=== PATIENT | female | born 1965 | race Caucasian/White ===

== ENCOUNTER → 2016-12-04 | Outpatient (CLI) | payer OTHER ==
--- NOTE | 2016-12-04 09:23 | MM ---
Reason for exam: follow-up at short interval from prior study. Last mammogram was performed 5 months ago. History: Patient has history of breast cancer at age 51 and has history of high-risk lesion on a previous biopsy at age 51. High risk US biopsy breast VAD RT of the right breast, July 16, 2016. Malignant MG pre op needle loc LT of the left breast, June 18, 2016. Lumpectomy of the left breast, June 18, 2016. Physical Findings: Nurse did not find any significant physical abnormalities on exam. MG Diagnostic Mammo w CAD DELONTE Bilateral CC and MLO view(s) were taken. Prior study comparison: July 16, 2016, right breast MG diagnostic mammo RT wo CAD. July 12, 2016, right breast MG diagnostic mammo RT w CAD. The breast tissue is heterogeneously dense. This may lower the sensitivity of mammography. Post surgical and post therapy changes in the left breast. Additional post excision changes in the right breast. Findings can be reassessed in 6 months to assess for evolving changes. These results were verbally communicated with the patient and result sheet given to the patient on 12/04/16. ASSESSMENT: Probably benign, BI-RAD 3 RECOMMENDATION: Follow-up diagnostic mammogram of both breasts in 6 months.
== END | disposition home or self-care (01) ==
LOC: RADMAMWWP 07:01
PROVIDERS: ATTEND Family Medicine
DX: C50.412 Malignant neoplasm of upper-outer quadrant of left female breast (principal); C77.3 Secondary and unspecified malignant neoplasm of axilla and upper limb lymph nodes

== ENCOUNTER → 2017-07-08 | Outpatient (CLI) | payer OTHER ==
--- NOTE | 2017-07-09 07:12 | MM ---
Reason for exam: additional evaluation requested from prior study. Last mammogram was performed 7 months ago. History: Patient is postmenopausal, has history of breast cancer at age 51, and has history of high-risk lesion on a previous biopsy at age 51. High risk US biopsy breast VAD RT of the right breast, July 16, 2016. Malignant MG pre op needle loc LT of the left breast, June 18, 2016. Lumpectomy of the left breast, June 18, 2016. Took hormonal contraceptives beginning at age 21. Took antineoplastic beginning at age 51. Physical Findings: Nurse did not find any significant physical abnormalities on exam. MG Diagnostic Mammo w CAD DELONTE Bilateral CC and MLO view(s) were taken. Prior study comparison: December 04, 2016, bilateral MG diagnostic mammo w CAD DELONTE. The breast tissue is heterogeneously dense. This may lower the sensitivity of mammography. Finding: Architectural distortion in the posterior position of the left breast, consistent with known excision. There is no new dominant lesion. There is distortion in the right breast central anterior middle aspect consistent with high risk biopsy. Left breast is asymmetrically smaller with thickened skin. These results were verbally communicated with the patient and result sheet given to the patient on 07/08/17. ASSESSMENT: Probably benign, BI-RAD 3 RECOMMENDATION: Follow-up diagnostic mammogram of both breasts in 6 months. (Cancer less than 2 years).
== END | disposition home or self-care (01) ==
LOC: RADMAMWWP 14:53
PROVIDERS: ATTEND Radiology Radiation Oncology
DX: C50.412 Malignant neoplasm of upper-outer quadrant of left female breast (principal); C77.3 Secondary and unspecified malignant neoplasm of axilla and upper limb lymph nodes

== ENCOUNTER → 2018-01-06 | Outpatient (CLI) | payer OTHER ==
--- NOTE | 2018-01-14 13:16 | MM ---
Reason for exam: additional evaluation requested from prior study. Last mammogram was performed 6 months ago. History: Patient is postmenopausal, has history of breast cancer at age 51, and has history of high-risk lesion on a previous biopsy at age 51. High risk US biopsy breast VAD RT of the right breast, July 16, 2016. Malignant MG pre op needle loc LT of the left breast, June 18, 2016. Lumpectomy of the left breast, June 18, 2016. Chemotherapy, 2015. Radiation therapy of the left breast, 2016. Took hormonal contraceptives beginning at age 21. Taking antineoplastic beginning at age 51. Physical Findings: Nurse Summary: 1.5cm questionable nodule in the left breast at 12 o'clock (nurse mj). MG Diagnostic Mammo w CAD DELONTE Bilateral CC and MLO view(s) were taken. Spot compression CC view(s) were taken of the right breast. Prior study comparison: July 08, 2017, bilateral MG diagnostic mammo w CAD DELONTE. December 04, 2016, bilateral MG diagnostic mammo w CAD DELONTE. The breast tissue is heterogeneously dense. This may lower the sensitivity of mammography. Right medial asymmetry resolves on spot compression view. No suspicious abnormality. Left post therapy change. Right post operative change. These results were verbally communicated with the patient and result sheet given to the patient on 01/06/18. ASSESSMENT: Benign, BI-RAD 2 RECOMMENDATION: Follow-up diagnostic mammogram of both breasts in 1 year.
== END | disposition home or self-care (01) ==
LOC: RADMAMWWP 13:26
PROVIDERS: ATTEND Internal Medicine Hematology & Oncology
DX: Z08 Encounter for follow-up examination after completed treatment for malignant neoplasm (principal); Z85.3 Personal history of malignant neoplasm of breast
CPT/HCPCS: 77066

== ENCOUNTER → 2018-01-22 | Outpatient (CLI) | payer OTHER ==
--- NOTE | 2018-01-22 13:56 | USB ---
Reason for exam: clinical finding. History: Patient is postmenopausal, has history of breast cancer at age 51, and has history of high-risk lesion on a previous biopsy at age 51. High risk US biopsy breast VAD RT of the right breast, July 16, 2016. Malignant MG pre op needle loc LT of the left breast, June 18, 2016. Lumpectomy of the left breast, June 18, 2016. Chemotherapy, 2016. Radiation therapy of the left breast, 2016. Took hormonal contraceptives beginning at age 21. Taking antineoplastic beginning at age 51. Physical Findings: Breast exam performed on 01/06/18. US Breast LT Left complete breast ultrasound includes all four quadrants, the retroareolar region and axilla. Finding demonstrates post surgical change at lumpectomy site. No additional solid or cystic masses. No suspicious abnormality. These results were verbally communicated with the patient and result sheet given to the patient on 01/22/18. ASSESSMENT: Benign, BI-RAD 2 RECOMMENDATION: Follow-up diagnostic mammogram of both breasts in 1 year.
== END | disposition home or self-care (01) ==
LOC: RADUSWWP 09:50
PROVIDERS: ATTEND Internal Medicine Hematology & Oncology
DX: N63.20 Unspecified lump in the left breast, unspecified quadrant (principal); Z85.3 Personal history of malignant neoplasm of breast

== ENCOUNTER → 2018-01-22 | Outpatient (CLI) | payer OTHER ==
[2018-01-22 09:16] VITALS: BP 135/87; PULSE 99; BMI 38.0
--- NOTE | 2018-01-22 09:46 | P.GSHP ---
History of Present Illness H&P Date: 01/22/18 Chief Complaint: history of breast cancer The patient is a 52-year-old white female status post a left breast lumpectomy for a stage IIb breast cancer in 2016. She underwent preoperative chemotherapy followed by lumpectomy with axillary nodes removed cancer was present in one node and she then underwent radiation therapy. The radiation included the axilla. The patient had a bilateral mammogram 01-06-18 which was felt to be benign however the patient and Dr. Khan as well as examining nurse feel a area of increased density in the left breast near the lumpectomy site for which an ultrasound is being done later today. The patient also feels this area. No nipple discharge or pain the patient denies any nipple discharge of concern. The patient denies any pain in her breast. She has no complaints of any changes in her right breast. She is taking tamoxifen for a computer stuff done without adenopathy in the purulence that he prefers. Family history: Father prostate cancer Brother: Prostate cancer Sister: Lung cancer Patient: Breast cancer Social history: Smoking: Negative Alcohol: Wine coolers twice a week Drugs: Negative Review of systems: HEENT: Concern that no gross glasses for seeing Lungs: Negative Heart: Negative GI: Negative : Negative Skin: No cancers Musculoskeletal:arthritis Menarche: 13 mneopause: within last 2 years, brought on by the treatment pregnancys: 4 with 3 births Patient did not breast-feed First live at 21 - Constitutional Constitutional: Reports as per HPI - EENT Eyes: bilateral as per HPI Ears: deny: decreased hearing, ear discharge, earache, tinnitus Ears, nose, mouth and throat: Denies headache, Denies sore throat - Breasts Breasts: bilateral: as per HPI - Cardiovascular Cardiovascular: Denies chest pain, Denies shortness of breath - Respiratory Respiratory: Denies cough, Denies 7 - Gastrointestinal Gastrointestinal: Denies abdominal pain, Denies diarrhea, Denies nausea, Denies vomiting - Genitourinary (Female) Genitourinary: Denies dysuria, Denies hematuria - Menstruation Menstruation: Reports as per HPI - Musculoskeletal Comment: Arthritis - Integumentary Integumentary: Reports as per HPI - Neurological Comment: 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 History of Any Multi-Drug Resistant Organisms: None Reported Past Surgical History: Breast Surgery, Section Additional Past Surgical History / Comment(s): x 2, L breast bx., port a cath insertion. 06-18-16 LT BREST LUMPECTOMY/SENTINEL NODE BX-NELLY CATH REMOVED. Past Anesthesia/Blood Transfusion Reactions: No Reported Reaction Past Psychological History: No Psychological Hx Reported Smoking Status: Never smoker Past Alcohol Use History: Occasional Past Drug Use History: None Reported - Past Family History Brother(s) Family Medical History: Cancer Additional Family Medical History / Comment(s): PROSTATE DIAGNOSED AT AGE 52 STILL LIVING Father Family Medical History: Cancer Additional Family Medical History / Comment(s): PROSTATE AT THE AGE OF 85 Sister(s) Family Medical History: Cancer Additional Family Medical History / Comment(s): DIAGNOSED WITH LUNG CANCER IN 2017 AT THE AGE OF 56. Medications and Allergies Home Medications Medication Instructions Recorded Confirmed Type RX: Levothyroxine Sodium 250 mcg PO DAILY 12/20/15 06/18/16 History [Unithroid] RX: Tamoxifen [Nolvadex] 20 gm PO TID-W/MEALS 01/22/18 01/22/18 History Allergies Allergy/AdvReac Type Severity Reaction Status Date / Time No Known Allergies Allergy Verified 06/14/16 15:56 Surgical - Exam Vital Signs Pulse BP 99 135/87 01/22/18 09:10 01/22/18 09:10 - General obese - Eyes normal ocular movement - ENT normal pinna, normal nares, normal mucosa, no hearing loss - Neck no masses, trachea midline - Respiratory normal respiratory effort, clear to auscultation - Cardiovascular Rhythm: regular Heart Sounds: normal: S1, S2 - Abdomen Abdomen: soft, non tender, no guarding, no rigid, no rebound - Integumentary Bilateral lower extremity edema Upper extremities measured for lymphedema: Left forearm half a centimeter or larger than right forearm 10.5 cm Upper arms same size 16 cm - Neurologic no disoriented, no combative - Musculoskeletal normal gait, normal posture - Psychiatric oriented to time, oriented to person, oriented to place, speech is normal, memory intact Breast examination: Right breast: Multiple positional exam no dominant masses or nodules of concern Well-healed scar from prior biopsy No axillary adenopathy on the right of concern Left breast examination: Multiple positional exam changes from radiation and prior lumpectomy noted nothing of concern Left axilla no adenopathy of concern Assessment and Plan Assessment: Impression/plan: 1. History of left breast cancer status post lumpectomy and radiation therapy as well as chemotherapy and presently on tamoxifen 2. Swelling in bilateral lower extremities left greater than right 3. Arms were measured for lymphedema the left forearm is slightly larger than the right forearm although the arms themselves are the same size Plan: 1. Patient for ultrasound of the left breast today depending on results will see patient again in 6 months time 2. Referral for lymphedema specialist 3. Medical management of lower extremity edema Cc: Dr. Cornelius, also sent As a nurse practitioner Christel Henderson
== END | disposition home or self-care (01) ==
LOC: WWCWWP 09:07
PROVIDERS: ATTEND Surgery
DX: Z53.9 Procedure and treatment not carried out, unspecified reason (principal)

== ENCOUNTER → 2019-01-08 | Outpatient (CLI) | payer BC ==
--- NOTE | 2019-01-08 14:00 | MM ---
Reason for exam: additional evaluation requested from prior study. Last mammogram was performed 1 year ago. History: Patient is postmenopausal, has history of breast cancer at age 51, and has history of high-risk lesion on a previous biopsy at age 51. High risk US biopsy breast VAD RT of the right breast, July 16, 2016. Malignant MG pre op needle loc LT of the left breast, June 18, 2016. Lumpectomy of the left breast, June 18, 2016. Chemotherapy, 2015. Radiation therapy of the left breast, 2016. Took hormonal contraceptives beginning at age 21. Taking antineoplastic beginning at age 51. Physical Findings: Nurse did not find any significant physical abnormalities on exam. MG Diagnostic Mammo w CAD DELONTE Bilateral CC and MLO view(s) were taken. XCCL view(s) were taken of the right breast. Prior study comparison: January 06, 2018, bilateral MG diagnostic mammo w CAD DELONTE. July 08, 2017, bilateral MG diagnostic mammo w CAD DELONTE. No significant new findings when compared with previous films. These results were verbally communicated with the patient and result sheet given to the patient on 01/08/19. ASSESSMENT: Benign, BI-RAD 2 RECOMMENDATION: Follow-up diagnostic mammogram of both breasts in 1 year.
== END | disposition home or self-care (01) ==
LOC: RADMAMWWP 13:04
PROVIDERS: ATTEND Internal Medicine Hematology & Oncology
DX: Z08 Encounter for follow-up examination after completed treatment for malignant neoplasm (principal); Z85.3 Personal history of malignant neoplasm of breast
CPT/HCPCS: 77066

== ENCOUNTER → 2019-07-29 | Outpatient (CLI) | payer BC ==
[2019-07-29 17:12] LABS: Basophils % (A) 0 %; Eosinophils # (A) 0.2 k/uL (0-0.7); Eosinophils % (A) 2 %; HCT 36.7 % (34.0-46.0); Lymphocytes # (A) 1.4 k/uL (1.0-4.8); Lymphocytes % (A) 22 %; MCH 29.7 pg (25.0-35.0); MCHC 32.7 g/dL (31.0-37.0); Mean Platelet Volume 7.7; Monocytes # (A) 0.4 k/uL (0-1.0); Monocytes % (A) 6 %; Neutrophils # (A) 4.3 k/uL (1.3-7.7); Neutrophils % (A) 66 %; Platelet Count 219 k/uL (150-450); RBC 4.03 m/uL (3.80-5.40); RDW 12.6 % (11.5-15.5); WBC 6.5 k/uL (3.8-10.6)
== END | disposition home or self-care (01) ==
LOC: LABPAT 16:21
PROVIDERS: ATTEND Obstetrics & Gynecology
DX: Z01.812 Encounter for preprocedural laboratory examination (principal); N95.0 Postmenopausal bleeding; R93.89 Abnormal findings on diagnostic imaging of other specified body structures
CPT/HCPCS: 85025

== ENCOUNTER → 2019-08-13 | Day surgery (SDC) | payer BC ==
[2019-08-10 09:54] VITALS: BMI 38.0
[~2019-08-13] MED LIST: Acetaminophen-Codeine 300-30mg TAB PO PRN; DEXAMETHASONE SOD PHOSPHATE 10 MG/ML 1 ML VIAL IV ONE; HYDROmorphone 0.5 MG/0.5 ML SYRINGE IVP PRN; IBUPROFEN 600 MG TAB PO PRN; KETOROLAC 30 MG/ML 1 ML VIAL IVP PRN; KETOROLAC 30 MG/ML 1 ML VIAL ONE; LACTATED RINGERS 1,000 ML IV SCH; LIDOCAINE 1% INJ 10MG/ML (20 ML MDV) ONE; METOCLOPRAMIDE 5 MG/ML 2 ML VIAL IVP PRN; MIDAZOLAM 2 MG/2 ML VIAL IV PRN; MIDAZOLAM 2 MG/2 ML VIAL ONE; ONDANSETRON 4 MG/2 ML VIAL IVP ONE; ONDANSETRON 4 MG/2 ML VIAL IVP PRN; PROPOFOL 10 MG/ML 20 ML VIAL IV ONE; Pre Op ABX Message 1 EACH MISC MISCELLANE ONE; SCOPOLAMINE 1.5MG/72HR PATCH TRANSDERM ONE; SIMETHICONE 80 MG CHEWABLE PO PRN; diphenhydrAMINE 50 MG/ML 1 ML VIAL IVP PRN; fentaNYL (PF) 50 MCG/ML 2 ML AMP ONE
--- NOTE | 2019-08-13 10:53 | P.OP ---
Date of Procedure: 08/13/19 Preoperative Diagnosis: #1. Post menopausal bleeding #2. Thickened endometrial stripe on tamoxifen Postoperative Diagnosis: Same Procedure(s) Performed: #1. Diagnostic hysteroscopy #2. Dilation and curettage Anesthesia: other (Gen. by LMA) Surgeon: Wilmer Dunham Estimated Blood Loss (ml): 2 IV fluids (ml): 200 Urine output (ml): 50 Pathology: other (Endometrial curettings) Condition: stable Disposition: PACU Operative Findings: Intraoperatively, the uterus sounded to approximately 10 cm. Using the hysteroscope, the right tubal ostia was seen while the left was not as the cervix was dilated enough to not allow significant distention of the cavity. There appeared to be may have been a polyp attached at the fundus of the uterus or may have just represented some shaggy tissue as no polypoid tissue could be extracted during the D&C or with a polyp forceps. The typical gritty texture was felt throughout and there was minimal tissue returned. The patient is a poor candidate for vaginal instructed he should it be necessary. Description of Procedure: The patient was prepped and draped in usual fashion after general anesthesia was administered by the anesthesiologist. Weighted speculum was placed and the bladder was draining approximately 50 mL of clear brenden urine. The anterior lip of the cervix was grasped with single-tooth tenaculum and the uterus sounded to 10 cm as noted above. Dilators were utilized and an 18-Indian dilator could easily be placed without. The diagnostic hysteroscope was placed and the uterus findings as noted above. After adequate hysteroscopy had been carried out, the scope was set aside and a sharp curette laced to the fundus uterus. Serial and circumferential curettage was carried out onto a Telfa placed in the vagina with the typical gritty or Diana texture encountered throughout and minimal tissue returned. Polyp forceps was introduced and no tissue could be produced. One last pass was made with a sharp curette and the procedure was terminated. All instrumentation was removed. Is notable loss for the case was approximate 2 mL or less. There were no complications. All sponge, instrument, and needle counts were correct. The patient tolerated the procedure well and proceeded to the recovery room in stable condition.
[2019-08-13 11:05] VITALS: TEMP 97.5
[2019-08-13 11:13] VITALS: RESP 16
[2019-08-13 12:22] VITALS: BP 136/89; PULSE 92
== END | disposition home or self-care (01) ==
LOC: OR 08:44
PROVIDERS: ATTEND Obstetrics & Gynecology
DX: N84.1 Polyp of cervix uteri (principal); N95.0 Postmenopausal bleeding; E07.9 Disorder of thyroid, unspecified; Z85.3 Personal history of malignant neoplasm of breast; Z87.891 Personal history of nicotine dependence; Z92.3 Personal history of irradiation; Z92.21 Personal history of antineoplastic chemotherapy; Z79.899 Other long term (current) drug therapy; Z79.810 Long term (current) use of selective estrogen receptor modulators (SERMs)
CPT/HCPCS: 88305; 58558; J2250; J1100; J2405; J2001; J3010; J1885; J2704

== ENCOUNTER → 2020-02-23 | Outpatient (CLI) | payer BC ==
--- NOTE | 2020-02-24 08:39 | MM ---
Reason for exam: additional evaluation requested from prior study. Last mammogram was performed 1 year and 1 month ago. History: Patient is postmenopausal, has history of breast cancer at age 51, and has history of high-risk lesion on a previous biopsy at age 51. High risk US biopsy breast VAD RT of the right breast, July 16, 2016. Malignant MG pre op needle loc LT of the left breast, June 18, 2016. Lumpectomy of the left breast, June 18, 2016. Chemotherapy, 2015. Radiation therapy of the left breast, 2016. Took hormonal contraceptives beginning at age 21. Taking antineoplastic for 3 years beginning at age 51. Physical Findings: Nurse did not find any significant physical abnormalities on exam. MG Diagnostic Mammo w CAD DELONTE Bilateral CC and MLO view(s) were taken. Prior study comparison: January 08, 2019, bilateral MG diagnostic mammo w CAD DELONTE. January 06, 2018, bilateral MG diagnostic mammo w CAD DELONTE. The breast tissue is heterogeneously dense. This may lower the sensitivity of mammography. Stable post operative changes left breast. Clips in the right breast. No significant new findings when compared with previous films. These results were verbally communicated with the patient and result sheet given to the patient on 02/23/20. ASSESSMENT: Benign, BI-RAD 2 RECOMMENDATION: Follow-up diagnostic mammogram of both breasts in 1 year.
== END | disposition home or self-care (01) ==
LOC: RADMAMWWP 14:40
PROVIDERS: ATTEND Internal Medicine Hematology & Oncology
DX: C50.412 Malignant neoplasm of upper-outer quadrant of left female breast (principal); Z85.3 Personal history of malignant neoplasm of breast
CPT/HCPCS: 77066

== ENCOUNTER → 2021-03-12 | Outpatient (CLI) | payer BC ==
--- NOTE | 2021-03-13 07:49 | MM ---
Reason for exam: additional evaluation requested from prior study. Last mammogram was performed 1 year and 1 month ago. History: Patient is postmenopausal, has history of breast cancer at age 51, and has history of high-risk lesion on a previous biopsy at age 51. High risk US biopsy breast VAD RT of the right breast, July 16, 2016. Malignant MG pre op needle loc LT of the left breast, June 18, 2016. Lumpectomy of the left breast, June 18, 2016. Chemotherapy, 2015. Radiation therapy of the left breast, 2016. Took hormonal contraceptives beginning at age 21. Taking antineoplastic for 3 years beginning at age 51. Physical Findings: Nurse did not find any significant physical abnormalities on exam. MG Diagnostic Mammo w CAD DELONTE Bilateral CC and MLO view(s) were taken. XCCL view(s) were taken of the left breast. Prior study comparison: February 23, 2020, bilateral MG diagnostic mammo w CAD DELONTE. January 08, 2019, bilateral MG diagnostic mammo w CAD DELONTE. There are scattered fibroglandular densities. Post operative bilaterally and skin thickening on left. No change. These results were verbally communicated with the patient and result sheet given to the patient on 03/12/21. ASSESSMENT: Benign, BI-RAD 2 RECOMMENDATION: Follow-up diagnostic mammogram of both breasts in 1 year.
== END | disposition home or self-care (01) ==
LOC: RADMAMWWP 15:08
PROVIDERS: ATTEND Internal Medicine Hematology & Oncology
DX: N64.89 Other specified disorders of breast (principal); Z78.0 Asymptomatic menopausal state; Z85.3 Personal history of malignant neoplasm of breast
CPT/HCPCS: 77066

== ENCOUNTER → 2022-03-15 | Outpatient (CLI) | payer BC ==
--- NOTE | 2022-03-18 10:29 | MM ---
Reason for Exam: Screening (asymptomatic). Last screening mammogram was performed 12 month(s) ago. Patient History: Menarche at age 14. First Full-Term at age 21. Postmenopausal. Breast cancer, age 51. Hormonal Contraceptives, from age 21 until age 40. 06/18/2016, Lumpectomy on the Left side. 07/16/2016, High risk Core Biopsy on the right side. 06/18/2016, Malignant Core Biopsy on the left side. 2015, Chemotherapy. 2015, Radiation Therapy on the left side. Prior Study Comparison: 01/08/2019 Bilateral Diagnostic Mammogram, [facility]. 02/23/2020 Bilateral Diagnostic Mammogram, [facility]. 03/12/2021 Bilateral Diagnostic Mammogram, [facility]. Tissue Density: There are scattered fibroglandular densities. Findings: Analyzed By CAD. Postsurgical and posttreatment changes left breast with a posteriorly located bibasilar device. Some minimal benign dystrophic calcification has developed here in the interval. Postexcisional changes also present within the anterior aspect of the right breast. No significant change from prior exams. Overall Assessment: Benign, BI-RAD 2 Management: Screening Mammogram of both breasts in 1 year. 1. Patient should continue monthly self breast exams. 2. A clinical breast exam by your physician is recommended on an annual basis. 3. This exam should not preclude additional follow-up of suspicious palpable abnormalities. Electronically signed and approved by: Daniel Bustillos M.D. Radiologist
== END | disposition home or self-care (01) ==
LOC: RADMAMWWP 15:00
PROVIDERS: ATTEND Internal Medicine Hematology & Oncology
DX: Z12.31 Encounter for screening mammogram for malignant neoplasm of breast (principal); Z78.0 Asymptomatic menopausal state
CPT/HCPCS: 77067

== ENCOUNTER → 2022-05-22 | Outpatient (CLI) | payer BC ==
--- NOTE | 2022-05-23 17:47 | BD ---
EXAMINATION TYPE: Axial Bone Density DATE OF EXAM: 05/22/2022 COMPARISON: NONE CLINICAL HISTORY: 57 years year old Female. ICD-10 CODE: C50.412 BREAST CA Height: 67.5 Weight: 252.5 FRAX RISK QUESTIONS: Alcohol (3 or more units per day): NO Family History (Parent hip fracture): NO Glucocorticoids (More than 3mos): NO History of Fracture in Adulthood: WRIST Secondary Osteoporosis: 1. Type 1 Diabetes: NO 2. Hyperthyroidism: NO 3. Menopause before 45: NO 4. Malnutrition: NO 5. Chronic liver disease: NO Rheumatoid Arthritis: NO Current Tobacco Use: NO RISK FACTORS HISTORY OF: Hip Fracture (Right/Left): NO Spine Fracture: NO History of Wrist Fracture LT WRIST: When: AGE 40 Surgery to Spine/Hip(right/left)/Wrist (right/left): NO Family History of Osteoporosis: NO Active: NO Diet low in dairy products/other sources of calcium: NO Postmenopausal woman: YES Take estrogen and/or progesterone medications: YES How long: ESTROGEN DEL PAST 6 YEARS ANASTROZOLE Lost more than 2 inches in height since high school: NO Frequent falls: NO Poor Health: NO Hyperparathyroidism: NO Adrenal Insufficiency: NO MEDICATIONS: Prednisone or other steroids: NO Thyroid Medications: YES Which medication: SYNTHROID How Long: PAST 35 YEARS Osteoporosis Medications: NO Which medication: How Long: Additional Medications: VIT D, CALCIUM, , MAGNESIUM, ANASTROZOLE, SYNTHROID Additional History: BREAST CA. 2016 WITH CHEMO AND RADIATION EXAM MEASUREMENTS: Bone mineral densitometry was performed using the [employer] System. Bone mineral density as measured about the Lumbar spine is: ----- L1-L4(G/cm2): 1.296 T Score Values are as follows: ----- L1: 0.0 ----- L2: 0.7 ----- L3: 1.5 ----- L4: 1.3 ----- L1-L4: 1.0 BASELINE STUDY Bone mineral density about the R hip (g/cm2): 0.929 Bone mineral density about the L hip (g/cm2):0.875 T Score values are as follows: -----R Neck: -0.8 -----L Neck: -1.2 -----R Total: -1.0 -----L Total: -1.3 BASELINE STUDY FRAX%s: The graph provided illustrates a 5.7% chance for a major osteoporotic fx and a 0.3% chance fo r the hips probability for fx in 10 years time. IMPRESSION: Osteopenia (T Score between -2.5 and -1). There is slightly increased risk of fracture and the patient may be considered for treatment. Re-Screen 2-5 years. NOTE: T-SCORE=SD OF THE YOUNG ADULT MEAN.
== END | disposition home or self-care (01) ==
LOC: RADBDWWP 16:21
PROVIDERS: ATTEND Internal Medicine Hematology & Oncology
DX: C50.412 Malignant neoplasm of upper-outer quadrant of left female breast (principal)
CPT/HCPCS: 77080

== ENCOUNTER → 2024-06-07 | Outpatient (CLI) | payer BC ==
--- NOTE | 2024-06-08 08:02 | MM ---
Reason for Exam: Screening (asymptomatic). Last mammogram was performed 1 year(s) and 3 month(s) ago. Patient History: Menarche at age 14. First Full-Term at age 21. Postmenopausal. Breast cancer, left, age 51. Hormonal Contraceptives, from age 21 until age 40. 06/18/2016, Lumpectomy on the Left side. 07/16/2016, High risk Core Biopsy on the right side. 06/18/2016, Malignant Core Biopsy on the left side. 2015, Radiation Therapy on the left side. 2015, Chemotherapy. 2015, Radiation Therapy on the left side. Prior Study Comparison: 03/12/2021 Bilateral Diagnostic Mammogram, [facility]. 03/15/2022 Bilateral MG screening mammo w CAD, [facility]. 03/17/2023 Bilateral MG screening mammo w CAD, [facility]. Tissue Density: The breasts are heterogeneously dense, which may obscure small masses. Findings: Analyzed By CAD. There is no suspicious group of microcalcifications or new suspicious mass in either breast. Postbiopsy changes noted bilaterally. Area of asymmetric density in the upper outer left breast stable. Stable benign-appearing lymph nodes in the axilla. Overall Assessment: Benign, BI-RAD 2 Management: Screening Mammogram of both breasts in 1 year. . Patient should continue monthly self-breast exams. A clinical breast exam by your physician is recommended on an annual basis. This exam should not preclude additional follow-up of suspicious palpable abnormalities. Note on Barb scores and lifetime risk: 1. A Barb score greater than 3% is considered moderate risk. If this is the case, consider specialist referral to assess eligibility for a risk reducing agent. 2. If overall lifetime risk for the development of breast cancer is 20% or higher, the patient may qualify for future screening with alternating mammogram and breast MRI. [facility], , 06/08/2024 7:59 AM. Electronically signed and approved by: Wilfrid Starkey M.D. Radiologis
== END | disposition home or self-care (01) ==
LOC: RADMAMWWP 14:04
PROVIDERS: ATTEND Internal Medicine Hematology & Oncology
CPT/HCPCS: 77067

== ENCOUNTER → 2024-12-07 | Outpatient (CLI) | payer BC ==
--- NOTE | 2024-12-07 15:38 | BD ---
EXAMINATION TYPE: Axial Bone Density DATE OF EXAM: 12/07/2024 CLINICAL HISTORY: 59 years old Female. ICD-10 CODE: M81.0 OSTEOPENIA , Additional History: Height: 66.4 in Weight: 258 lbs FRAX RISK QUESTIONS: History of Fracture in Adulthood: lt forearm age 39 RISK FACTORS HISTORY OF: History of Wrist Fracture: yes lt forearm age 39 MEDICATIONS: Thyroid Medications: yes Which medication: Levothyroxine How Lon+ years EXAM MEASUREMENTS: Bone mineral densitometry was performed using the [employer] System. Bone mineral density as measured about the Lumbar spine is: ----- L1-L4(G/cm2): 1.315 T Score Values are as follows: ----- L1: -0.1 ----- L2: 0.6 ----- L3: 1.7 ----- L4: 0.3 ----- L1-L4: 1.1 Z Score Values are as follows: ----- L1: -0.2 ----- L2: 0.5 ----- L3: 1.6 ----- L4: 1.5 ----- L1-L4: 1.0 Bone mineral density has: Increased 1.5% since study of: 05/22/2022 Bone mineral density about the R hip (g/cm2): 0.860 Bone mineral density about the L hip (g/cm2): 0.862 T Score values are as follows: -----R Neck: -1.1 -----L Neck: -1.3 -----R Total: -1.2 -----L Total: -1.2 Z Score values are as follows: -----R Neck: -0.7 -----L Neck: -0.8 -----R Total: -1.2 -----L Total: -1.1 Bone mineral density has: Increased 0.3% since study of: 05/22/2022 FRAX%s: The graph provided illustrates a 10.9% chance for a major osteoporotic fx and a 0.7% chance f or the hips probability for fx in 10 years time. IMPRESSION: Osteopenia (T Score between -2.5 and -1) remains present. There is slightly increased risk of fracture and the patient may be considered for treatment. Re-Screen 2-5 years. NOTE: T-SCORE=SD OF THE YOUNG ADULT MEAN. [facility], , 12/07/2024 3:36 PM
== END | disposition home or self-care (01) ==
LOC: RADBDWWP 14:53
PROVIDERS: ATTEND Internal Medicine Hematology & Oncology
DX: M81.0 Age-related osteoporosis without current pathological fracture (principal); C50.412 Malignant neoplasm of upper-outer quadrant of left female breast; M85.89 Other specified disorders of bone density and structure, multiple sites; E03.9 Hypothyroidism, unspecified; Z71.3 Dietary counseling and surveillance
CPT/HCPCS: 77080